=== PATIENT | female | born 1955 | race Caucasian/White ===

== ENCOUNTER 2017-04-24 16:48 | Inpatient (IN) | payer MEDICARE ==
[~2017-04-24] VITALS: Ht 162.6 cm; Wt 77.3 kg
--- NOTE | ~2017-04-24 | PR ---
[place], [place] PROGRESS NOTE NAME: JODY HIGHTOWER UNIT #: [id number] ROOM: 405 DOCTOR: DALE MATHEWS MD,JOSE BIRTHDATE: [birth year] DOS: 04/26/2017 SUBJECTIVE: She has been noted with further reduction and improvement of respiratory symptoms in last 24 hours. Denies symptoms of chest pain. The coughing has been subsiding, but not completely resolved. Denies symptoms of chest pain. OBJECTIVE: VITAL SIGNS: The patient showed normal temperature, respiratory rate 18, heart rate 79, blood pressure 110/96. The pulse oxygen saturation on 3 liters nasal cannula 94% saturation. HEENT: Examination showed no new change. NECK: Supple. CARDIOVASCULAR: S1, S2 audible. LUNGS: Mild to moderate decreased breath sounds without wheeze or crackles. ABDOMEN: Soft, nontender. LABORATORY DATA: BMP normal BUN and creatinine and other electrolytes. CBC normal. Chest x-ray, PA and lateral view was done yesterday excluded any abnormal pulmonary process of finding of COPD, hyperinflation: IMPRESSION: 1. Progressive resolution of the acute hypoxic respiratory failure, resolving acute exacerbation of chronic obstructive pulmonary disease and acute tracheobronchitis. 2. History of low-grade nicotine abuse from home. PLAN OF TREATMENT: No changes in the plan or therapy at this time. Continue the patient on current therapy, plan of care as in progress. Usual care, other supportive plan of care and treatments. JOSE HUNTER MD CM:MONICA [id number] JOSE MATHEWS MD 04/26/17 1459 interface
--- NOTE | ~2017-04-24 | CON ---
[place], [place] REPORT OF CONSULTATION NAME: JODY HIGHTOWER [facility] #: [id number] UNIT #: [id number] ROOM: 405 DOCTOR: DALE MATHEWS MDJOSE BIRTHDATE: [birth year] DOS: 04/25/2017 CONSULTATION REQUESTED BY: Hospitalist Services. REASON FOR CONSULTATION: To assess the patient for ongoing acute respiratory complaints. HISTORY OF PRESENT ILLNESS: This is a 61-year-old white female who has been known with past history of COPD noted with ongoing acute respiratory complaints for the past couple of weeks or more. The symptoms have been noted progressive. The patient has been treated with the Zithromax as an outpatient and was advised to getting a chest x-ray if the patient's symptom does not resolve. She was supposedly to have a chest x-ray done yesterday. The primary care physician was not available. So she came into the Emergency Room for further assessment. She has been assessed and hospitalized for the medical management of acute exacerbation of COPD. The cough has been noted moderate to severe. The patient mostly nonproductive, sometimes sputum expectoration noted as scant, thick, yellowish in color. Denies symptoms of chest pain. She has symptoms of hemoptysis. The patient does report symptoms of wheezing. REVIEW OF SYSTEMS: CONSTITUTIONAL: Fatigue and tiredness was described without symptoms of fever or chills. EYES: Denies any burning, redness, or tenderness. EARS, NOSE, THROAT: No sore throat, hoarseness, otalgia, or postnasal drainage. CARDIOVASCULAR: Denies any anginal pain, edema of the lower extremities or palpitations. GASTROINTESTINAL: Dysphagia, nausea, vomiting, diarrhea, abdominal pain, hematemesis, melena, or hematochezia. SKIN: Denies lesions or rashes. MUSCULOSKELETAL: Denies acute joint pain, redness, or tenderness. CENTRAL NERVOUS SYSTEM: Dizziness, headache, diplopia or syncopal episodes. Remaining systems were reviewed with the patient, they were noted all negative. PAST MEDICAL HISTORY: Known with history of COPD and treated as an outpatient. PAST SURGICAL HISTORY: Noted, 1. Knee arthroscopy. 2. Tubal ligation. 3. T and A. SOCIAL HISTORY: She is and lives at home. She has been noted with history of tobacco use since teenager, maximum of 1 pack of cigarettes per day. Currently smoking about a quarter pack of cigarettes per day. Denies history of chronic alcohol use or any illicit drug use. The patient noted with history use of marijuana. FAMILY HISTORY: Noted for COPD. [place], [place] REPORT OF CONSULTATION NAME: JODY HIGHTOWER UNIT #: [id number] ROOM: 405 DOCTOR: JOSE DURAN MD BIRTHDATE: [birth year] HOME MEDICATIONS: 1. Ventolin/proair HFA inhaler p.r.n. use. 2. Symbicort 160/4.5 two puffs b.i.d. 3. Multivitamin p.o. daily. 4. Percocet 1 q. 6 hours p.r.n. for pain. 5. Spiriva 18 mcg inhalation daily. DRUG ALLERGY HISTORY: 1. PENICILLIN. 2. CODEINE PHOSPHATE. PHYSICAL EXAMINATION: GENERAL: This is a 61-year-old female who has been currently noted awake and alert without any acute distress, sitting on a bed. VITAL SIGNS: The patient's height was recorded by the nursing staff as 5 feet 4 inches, weight 170 pounds, BMI 29.2. VITAL SIGNS: Temperature of 99.2 degrees Fahrenheit, normal temperature. Respiratory rate 18-24. Heart rate 84-87. Blood pressure 102/67-122/70. Pulse oxygen saturation was noted on room as 89% and on 3 L nasal cannula this morning 92% saturation. HEENT: Mild to moderate obesity. Head was atraumatic. Eyes nonicterus. NECK: Supple. CARDIOVASCULAR: S1, S2 audible. LUNGS: Severe reduce generalized air entry of the lung was noted. Wheezing was present. ABDOMEN: Soft with mild obesity. Bowel sounds present. No tenderness. EXTREMITIES: Showed no edema, clubbing or cyanosis. LABORATORY AND DIAGNOSTIC DATA: CBC that was done on admission was noted completely normal. PT/PTT were noted as normal. Lactic acid 0.9 yesterday on admission. CMP of 04/24/2017 BUN 5, creatinine was normal, glucose 101, normal LFTs except albumin mildly decreased 2.3. Troponin yesterday and this morning all 3 sets were normal. PT/PTT this morning was normal. The BMP which was done this morning was noted as normal BMP. CBC this morning was still noted as normal. The chest x-ray, 1 view, which was taken yesterday in the Emergency Room, was personally reviewed. The chest x-ray shows changes of COPD with hyperinflation, haziness in the lower portion of the thorax. Most likely to be related to the breast shadows. IMPRESSION: 1. The patient who has been currently admitted to the hospital noted with acute hypoxic respiratory failure result of acute exacerbation of chronic obstructive pulmonary disease with failed outpatient treatment. 2. History of continued low-grade nicotine abuse and mild obesity. 3. Oxygen supplementation for the medical management of acute hypoxic respiratory failure to maintain a saturation of 92% or greater. PLAN OF MANAGEMENT: The patient has been currently getting the Solu-Medrol intravenously 40 mg q. 8 hour that will be continued for today. The dose could be reduced from tomorrow based on improvement in symptoms. Continue with the [place], [place] REPORT OF CONSULTATION NAME: JODY HIGHTOWER UNIT #: [id number] ROOM: 405 DOCTOR: JOSE DURAN MD BIRTHDATE: [birth year] Levaquin intravenously. Obtain the sputum for Gram stain and culture. Continue Mucinex to help improve the secretions clearance. Continue bronchodilators every 4 hours while awake. Usual care, other supportive therapy, plan of management. Additional changes in treatment will be done based on progression of illness. Obtain a PA lateral chest x-ray of the patient to get more accurate determination of the lung parenchyma to light any problem, which will be visible with the lateral view. A detailed discussion about the tobacco cessation was done with the patient today. She was offered nicotine replacement patches, but the patient declined to use them at this time. However, if the patient require to use the nicotine replacement patches, it would be ordered accordingly. Thanks for allowing me to participate in the care of this patient. JOSE HUNTER MD CM:CONSTR:REPORT OF CONSULTATION 0956 04/25/17 1931 interface
--- NOTE | ~2017-04-24 | EKG ---
[place], [place] ELECTROCARDIOGRAM REPORT NAME: JODY HIGHTOWER UNIT #: [id number] ROOM: 405 DOCTOR: DALE MATHEWS MD,JOSE BIRTHDATE: [birth year] DOS: 04/24/2017 Procedure done on 04/24/2017 on 1720. The electrocardiogram showed normal sinus rhythm with a rate of 72 beats per minute. Remaining EKG was noted normal. JOSE HUNTER MD CM:EKGRPT:ELECTROCARDIOGRAM REPORT [id number] 1937 JOSE MATHEWS MD
[~2017-04-24 16:48] MED LIST: 'zithromax250 MG PO; CLINDAMYCIN150 MG PO; DELTASONE50 MG PO; DOXY-D100 MG PO; GUAIATUSSIN AC PO; MULTIVITAMINS1 EAC5 PO; PERCOCET 325 MG1 TA5 PO; PHOSLO667 M1 PO; PRAVACHOL40 MG PO; PREDNICOT20 MG PO; PROAIR HFA0.09 MG/AC IH; PROAIR HFA8.5 GM INH; PROTONIX40 M1; SINGULAIR10 MG PO; SPIRIVA18 MCG PO; SYMBICORT1 AE1 PO; VENTOLIN 02.5 MG/3 M INH; VIBRAMYCIN100 MG PO; VITAMIN C500 M7 PO; ZYRTEC10 MG PO
[2017-04-24 16:51] VITALS: BP 132/86
[2017-04-24 17:23] LABS: BASO % 0.2 % (0.0-1.0); EOS # 0.3 10*3/uL (0.0-0.4); EOS % 2.9 % (1.0-4.0); HEMATOCRIT 43.8 % (37.0-47.0); HEMOGLOBIN 14.1 g/dl (12.0-16.0); LYMPH # 1.2 10*3/uL (1.3-4.4); LYMPH % 12.1 % (27.0-41.0); MEAN CELL VOLUME 89.6 fl (81.0-99.0); MEAN CORPUSCULAR HGB 28.8 pg (27.0-31.0); MEAN CORPUSCULAR HGB CONC 32.2 g/dl (33.0-37.0); MEAN PLATELET VOLUME 10.3 fl (9.6-12.3); MONO # 0.7 10*3/uL (0.1-1.0); MONO % 7.6 % (3.0-9.0); NEUT # 7.4 10*3/uL (2.3-7.9); PLATELET COUNT AUTOMATED 208 10*3/uL (130-400); RED BLOOD COUNT 4.89 10*6/uL (4.10-5.10); RED CELL DISTRI WIDTH 13.8 % (0-14.5); WHITE BLOOD COUNT 9.6 10*3/uL (4.8-10.8)
[2017-04-24 17:31] LABS: ACT PARTIAL THROMBO TIME 24.6 SECONDS (20.8-31.5); INTERNATIONAL NORM RATIO 0.9 (2.0-3.5)
[2017-04-24 17:40] LABS: ALBUMIN 3.6 gm/dl (3.1-4.5); ALKALINE PHOSPHATASE 72 U/L (45-117); BUN 5 mg/dl (7-24); CHLORIDE 101 mmol/L (98-107); CREATININE 0.52 mg/dL (0.55-1.02); MAGNESIUM 2.3 mg/dL (1.5-2.1); POTASSIUM 3.6 mmol/L (3.5-5.1); SGOT/AST 24 IU/L (3-35); SGPT/ALT 25 U/L (12-78); SODIUM 137 mmol/L (136-145); TOTAL PROTEIN 7.1 gm/dL (6.4-8.2); TROPONIN I 0.035 ng/ml (<0.045)
--- NOTE | 2017-04-24 18:08 | NUR ---
SLEEPING SOUNDLEY, RESPS EASY. TELLS ME FEELING BETTER AFTER RESP TREATMENT.
[2017-04-24 18:09] VITALS: BP 91/61
--- NOTE | 2017-04-24 18:25 | NUR ---
AMBULATED TO BATHROOM. TOLERATED WELL.
[2017-04-24 19:03] VITALS: BP 125/69
[2017-04-24 20:00] VITALS: BP 139/67
--- NOTE | 2017-04-24 20:09 | NUR ---
A 61, admitted to , under the services of CHAYA Blanco DO with a diagnosis of COPD EXACERBATION. Chief complaint is SHORTNESS OF BREATH. Patient arrived via stretcher from ER. Monitor applied. Initial assessment completed. Vital signs taken and recorded. CHAYA BLANCO DO notified of admission to the unit. Orders received. See assessment for past medical history, medications and allergies. Patient and/or family oriented to unit. [facility] reviewed. Clothing/patient valuable form completed. VARGHESE RODRIGUEZ A
[2017-04-25] VITALS: BP 102/67
[2017-04-25 02:20] LABS: HEMATOCRIT 39.1 % (37.0-47.0); HEMOGLOBIN 12.7 g/dl (12.0-16.0); MEAN CELL VOLUME 90.5 fl (81.0-99.0); MEAN CORPUSCULAR HGB 29.4 pg (27.0-31.0); MEAN CORPUSCULAR HGB CONC 32.5 g/dl (33.0-37.0); MEAN PLATELET VOLUME 10.4 fl (9.6-12.3); PLATELET COUNT AUTOMATED 177 10*3/uL (130-400); RED BLOOD COUNT 4.32 10*6/uL (4.10-5.10); RED CELL DISTRI WIDTH 13.8 % (0-14.5); WHITE BLOOD COUNT 5.4 10*3/uL (4.8-10.8)
[2017-04-25 02:33] LABS: ACT PARTIAL THROMBO TIME 24.9 SECONDS (20.8-31.5); BUN 4 mg/dl (7-24); CHLORIDE 106 mmol/L (98-107); CREATININE 0.51 mg/dL (0.55-1.02); POTASSIUM 4.3 mmol/L (3.5-5.1); SODIUM 141 mmol/L (136-145)
[2017-04-25 02:39] LABS: CHOLESTEROL 141 mg/dL (<200); HDL CHOLESTEROL 58 mg/dl (40-60); LDL CHOLESTEROL 74 mg/dL (9-159); TRIGLYCERIDES 44 mg/dl (<150); VLDL CHOLESTEROL 9 mg/dL (6-40)
[2017-04-25 02:57] LABS: PLATELET SUFFICIENCY NORMAL (NORMAL); TOTAL CELLS COUNTED 100 #CELLS
[2017-04-25 02:59] LABS: VITAMIN D, 25-HYDROXY 25.5 ng/mL (30-100)
--- NOTE | 2017-04-25 06:08 | NUR ---
PT SLEPT QUIETLY IN BED MOST OF SHIFT. MOIST PRODUCTIVE COUGH NOTED THROUGHOUT THE NIGHT. EXPECTORATING THICK WHITE MUCUS. DENIES C/O PAIN.
--- NOTE | 2017-04-25 06:31 | NUR ---
DR. HUNTER NOTIFIED OF NEW CONSULT.
[2017-04-25 08:00] VITALS: BP 122/70
--- NOTE | 2017-04-25 09:00 | NUR ---
Skiagrapher in to talk to patient. Patient states lives at home with and son. There are few steps in the home. Physician: ishmael antonio Pharmacy: [facility] Home health services: none Patient's level of ADLs: INDEPENDENT Patient has working utilities: all working DME: home oxygen, nebulizer from [facility] patient Follow-up physician's appointment after d/c: will be made by hospitalist nurse director upon discharge Does patient want to access PORTAL?: no Discharge plan discussed with patient, patient lives at home with and son, she states she has a rollator walker that she uses occasionally, she has home oxygen that she uses only at , she also has a nebulzier, patient states that she will be returning home when medically stable, discussed with her vna and she refused any services at this time, case management will follow. VINAY MORAN
--- NOTE | 2017-04-25 09:40 | NUR ---
PATIENT AMBULATORY TO BATHROOM. SOB WITH EXERTION. PRODUCTIVE COUGH AT TIMES PER PT FOR THICK SPUTUM. WILL CONTINUE TO MONITOR. VSS. CALL LIGHT WITHIN REACH. SEE 0800 SHIFT ASSESSMENT.
--- NOTE | 2017-04-25 10:14 | NUR ---
JODY HIGHTOWER [id number] Please refer to the physician's history and physical for past medical history, comorbid conditions, and allergies. Diagnosis: COPD EXACERBATION HYPOXIA Luis Score: 22,LOW OR NO RISK WOUND DESCRIPTIONS: Location of the wound: right forearm proximal Type of wound: skin tear Thickness: Partial Size: 0.9cm x 2.2cm x 0.1cm Tunneling: none Undermining: none Sinus Tract: none Presence of Exudate: Serous Amount: Light Color: Red Odor: None Periwound Skin Appearance: Normal Wound edges: approximated Pain (associated with wound): none at time of assessment How does patient state this happened? pt state she is clumsy and hit a metal folder Location of the wound: right forearm distal Type of wound: skin tear Thickness: Partial Size: 0.4cm x 0.6cm x 0.1cm Tunneling: none Undermining: none Sinus Tract: none Presence of Exudate: Serous Amount: Light Color: Red Odor: None Periwound Skin Appearance: Normal Wound edges: approximated Pain (associated with wound): none at time of assessment How does patient state this happened? pt state she is clumsy and ran into something Location of the wound: left wrist Type of wound: skin tear Thickness: Partial Size: 1.6cm x 0.1cm x <0.1cm Tunneling: none Undermining: none Sinus Tract: none Presence of Exudate: none Amount: None Color: Red Odor: None Periwound Skin Appearance: Normal Wound edges: approximated Pain (associated with wound): none at time of assessment How does patient state this happened? pt stated she hit the area on the counter Location of the wound: right great toe Type of wound: stage 2 Thickness: Partial Size: 0.4cm x 0.3cm x 0.1cm Tunneling: none Undermining: none Sinus Tract: none Presence of Exudate: Serous Amount: Light Color: Red Odor: None Periwound Skin Appearance: Normal Wound edges: approximated Pain (associated with wound): none at time of assessment How does patient state this happened? pt state it occured on monday after her shoes were rubbing. Surface the patient is resting on: Position Pro SKIN PREVENTION RECOMMENDATION: 1. Pressure redistribution support surface as appropriate 2. Elevate heels 3. Remove boots/TEDS every shift and reapply 4. Head of bed 30 degrees as tolerated 5. Assess nutrition and hydration 6. Manage moisture 7. Avoid the use of containment devices while in bed 8. Use absorptive products on surfaces limit layers of linens on bed 9. Turn and reposition every 1-2 hours in bed and every 1 hour in chair as tolerated 10. Weight shifts every 15 minutes while up in chair 11. Offloading with pillows or device to keep heels elevated off bed 12. Monitor skin at least every shift 13. Inspect under medical devices twice a day WOUND TREATMENT RECOMMENDATIONS: Cleanse right forearm proximal and distal areas with nss and apply sureprep around wound, versatel to wound bed, hydrogel to wound bed and cover with rolled gauze. Left wrist leave open to air intact scab noted. Cleanse right great toe with nss and apply sureprep around wound bed and the therahoney to wound bed then cover with bandaid.
--- NOTE | 2017-04-25 11:40 | NUR ---
IN TO SEE PATIENT AT THIS TIME. PATIENT JUST RETURNED TO ROOM FROM GETTING A SHOWER.
[2017-04-25 12:00] VITALS: BP 147/77
[2017-04-25 16:00] VITALS: BP 116/60
[2017-04-25 20:00] VITALS: BP 140/95
--- NOTE | 2017-04-25 20:00 | NUR ---
ASSUMED CARE OF PATIENT. ASSESSMENT COMPLETE. RESTING IN BED. NO VOICED COMPLAINTS AT THIS TIME. CALL LIGHT IN REACH. WILL CONTINUE TO MONITOR.
--- NOTE | 2017-04-25 23:28 | NUR ---
RT ARM DRESSING CHANGED PER PT REQUEST
--- NOTE | 2017-04-25 23:30 | NUR ---
DAILY MED REC UP TO DATE PER PATIENT
[2017-04-26] VITALS: BP 133/73
--- NOTE | 2017-04-26 02:00 | NUR ---
SLEEPING. RESP EASY AND NONLABORED. O2 INTACT VIA NC. NO DISTRESS NOTED. CALL LIGHT IN REACH. WILL CONTINUE TO MONITOR.
[2017-04-26 06:48] LABS: BASO % 0.1 % (0.0-1.0); HEMATOCRIT 38.1 % (37.0-47.0); HEMOGLOBIN 12.7 g/dl (12.0-16.0); LYMPH # 0.9 10*3/uL (1.3-4.4); LYMPH % 8.7 % (27.0-41.0); MEAN CELL VOLUME 90.1 fl (81.0-99.0); MEAN CORPUSCULAR HGB CONC 33.3 g/dl (33.0-37.0); MONO # 0.6 10*3/uL (0.1-1.0); MONO % 5.2 % (3.0-9.0); NEUT # 9.1 10*3/uL (2.3-7.9); NEUT % 85.5 % (47.0-73.0); PLATELET COUNT AUTOMATED 196 10*3/uL (130-400); RED BLOOD COUNT 4.23 10*6/uL (4.10-5.10); RED CELL DISTRI WIDTH 14.2 % (0-14.5); WHITE BLOOD COUNT 10.7 10*3/uL (4.8-10.8)
[2017-04-26 07:32] LABS: CHLORIDE 106 mmol/L (98-107); POTASSIUM 3.8 mmol/L (3.5-5.1); SODIUM 139 mmol/L (136-145)
--- NOTE | 2017-04-26 07:32 | NUR ---
24 HR chart check completed.
[2017-04-26] MEDS ORDERED: DOXYCYCLINE100 M3 PO (07:35)
[2017-04-26] MEDS ORDERED: PREDNISONE10 MG PO (07:35)
[2017-04-26 07:44] LABS: BUN 8 mg/dl (7-24); CREATININE 0.54 mg/dL (0.55-1.02)
[2017-04-26 08:00] VITALS: BP 110/96
--- NOTE | 2017-04-26 08:00 | NUR ---
PT REFUSED DC PICS. STATED THAT SHE JUST WANTS TO GO HOME AND GO HOME NOW.
--- NOTE | 2017-04-26 08:41 | NUR ---
Discharge instructions reviewed with patient/family. Patient receptive and verbalizes understanding. Follow-up care arranged. Written instructions given to patient/family. YINA [place]
--- NOTE | 2017-04-26 09:12 | NUR ---
case management visits with patient, patient states she is going home and denies any home needs
== END 2017-04-26 09:15 | disposition home or self-care (01) | DRG 871 ==
LOC: ED 16:48 → 4E 19:41
PROVIDERS: Family Medicine; Internal Medicine; Physician Assistant; ADMIT Internal Medicine
DX: A41.9 Sepsis, unspecified organism (principal); J96.01 Acute respiratory failure with hypoxia; J18.9 Pneumonia, unspecified organism; J44.1 Chronic obstructive pulmonary disease with (acute) exacerbation; J44.0 Chronic obstructive pulmonary disease with (acute) lower respiratory infection; R65.20 Severe sepsis without septic shock; J20.9 Acute bronchitis, unspecified; E83.41 Hypermagnesemia; E66.9 Obesity, unspecified; Z71.6 Tobacco abuse counseling; Z72.0 Tobacco use; Z88.0 Allergy status to penicillin; Z88.1 Allergy status to other antibiotic agents; Z88.5 Allergy status to narcotic agent; Z79.899 Other long term (current) drug therapy; Z98.51 Tubal ligation status; Z83.6 Family history of other diseases of the respiratory system; Z80.9 Family history of malignant neoplasm, unspecified; Z68.29 Body mass index [BMI] 29.0-29.9, adult

== ENCOUNTER → 2017-06-19 | Outpatient (CLI) | payer MEDICARE ==
[~2017-06-19] MED LIST changes: +DOXYCYCLINE100 M3 PO; +PREDNISONE10 MG PO
== END | disposition home or self-care (01) ==
LOC: ORTHO 04:10
DX: M17.11 Unilateral primary osteoarthritis, right knee (principal); M25.461 Effusion, right knee

== ENCOUNTER → 2018-03-05 | Outpatient (CLI) | payer MEDICARE | END | disposition home or self-care (01) | LOC: RAD 12:30 | DX: M94.0 Chondrocostal junction syndrome [Tietze] (principal); J44.9 Chronic obstructive pulmonary disease, unspecified; R07.81 Pleurodynia; Z91.81 History of falling ==

== ENCOUNTER → 2019-09-09 | Outpatient (CLI) | payer MEDICARE | END | disposition home or self-care (01) | LOC: RAD 15:24 | DX: J40 Bronchitis, not specified as acute or chronic (principal) ==

== ENCOUNTER 2022-01-01 10:29 | Emergency (ER) | payer MEDICARE ==
[~2022-01-01] VITALS: Ht 165.1 cm; Wt 72.6 kg
[2022-01-01 11:21] LABS: BASO % 0.2 % (0.0-1.0); EOS # 0.1 10*3/uL (0.0-0.4); EOS % 1.2 % (1.0-4.0); HEMATOCRIT 36.5 % (37.0-47.0); LYMPH # 0.8 10*3/uL (1.3-4.4); LYMPH % 8.2 % (27.0-41.0); MEAN CELL VOLUME 88.4 fl (81.0-99.0); MEAN CORPUSCULAR HGB 29.8 pg (27.0-31.0); MEAN CORPUSCULAR HGB CONC 33.7 g/dl (33.0-37.0); MEAN PLATELET VOLUME 10.3 fl (9.6-12.3); MONO # 0.9 10*3/uL (0.1-1.0); MONO % 9.1 % (3.0-9.0); NEUT # 8.2 10*3/uL (2.3-7.9); NEUT % 80.8 % (47.0-73.0); PLATELET COUNT AUTOMATED 236 10*3/uL (130-400); RED BLOOD COUNT 4.13 10*6/uL (4.10-5.10); RED CELL DISTRI WIDTH 13.2 % (0-14.5); WHITE BLOOD COUNT 10.2 10*3/uL (4.8-10.8)
[2022-01-01 11:36] LABS: ALKALINE PHOSPHATASE 78 U/L (45-117); BUN 6 mg/dl (7-24); CHLORIDE 100 mmol/L (98-107); CREATININE 0.49 mg/dL (0.55-1.02); POTASSIUM 3.4 mmol/L (3.5-5.1); SGOT/AST 36 IU/L (3-35); SGPT/ALT 32 U/L (12-78); SODIUM 136 mmol/L (136-145)
[2022-01-01 11:47] LABS: BILIRUBIN Negative (Negative); BLOOD Negative (Negative); CLARITY Cloudy (Clear); COLOR Dark Yellow (Yellow); GLUCOSE Negative (Negative); KETONE 4+ (Negative); LEUKO ESTERASE 1+ (Negative); NITRITE Negative (Negative); SPECIFIC GRAVITY 1.025 (1.001-1.030)
[2022-01-01 12:03] LABS: PH 8.5 (4.5-8.0)
[2022-01-01 12:11] LABS: EPITHELIAL CELLS 21-30; YEAST 1+
[2022-01-01] MEDS ORDERED: LEVOFLOXACIN750 M2 PO (13:16)
== END 2022-01-01 13:18 | disposition home or self-care (01) ==
LOC: ED 10:29
PROVIDERS: Student in an Organized Health Care Education/Training Program
DX: J18.9 Pneumonia, unspecified organism (principal); Z88.0 Allergy status to penicillin; Z88.1 Allergy status to other antibiotic agents; Z88.8 Allergy status to other drugs, medicaments and biological substances; Z79.899 Other long term (current) drug therapy; Z90.89 Acquired absence of other organs; Z87.891 Personal history of nicotine dependence; Z98.51 Tubal ligation status